=== PATIENT | male | born 1975 | race Caucasian/White ===

== ENCOUNTER → 2017-10-15 | Outpatient (CLI) | payer SELFPAY ==
[2017-10-15 10:33] VITALS: BMI 40.6
[2017-10-15 11:50] VITALS: BP 152/83; PULSE 80; TEMP 97.8
--- NOTE | 2017-10-15 12:08 | FL ---
GASTRIC BANDING ESOPHAGRAM CLINICAL HISTORY: Pain 6 images. 30 sec fl time. Gastric banding esophagram was performed. The patient ingested thin liquid barium without difficulty or delay. Gastric band is noted to be in place. There is no evidence for leak or obstruction. No prolapse is identified. IMPRESSION: Normal-appearing gastric banding device without leak or obstruction.
--- NOTE | 2017-10-15 16:51 | P.HPBAR ---
Bariatric H&P - History & Physicial H&P Date: 10/15/17 History & Physicial: Visit/CC: lap band follow up Patient initial contact: Initial weight: Initial weight in pounds: Height: 6 ft Initial BMI: Last weight: Current weight: 136.078 kg Current weight in pounds: 300.00 Current BMI: 40.6 [place] body weight (based on NIH guidelines): 80.739 kg Excess body weight loss: The patient is a 42 year-old M who presents for Bariatric Assessment. The patient presents today for lab band follow. He has not been seen for over 6 years. Patient has had some complaints of nausea and epigastric dull pain. He is requesting his fluid removed. Past Medical History Past Medical History: GERD/Reflux, Hypertension History of Any Multi-Drug Resistant Organisms: None Reported Past Surgical History: Bariatric Surgery Additional Past Surgical History / Comment(s): lap band 2009 Past Anesthesia/Blood Transfusion Reactions: No Reported Reaction Past Psychological History: No Psychological Hx Reported Smoking Status: Former smoker Past Alcohol Use History: None Reported Additional Past Alcohol Use History / Comment(s): quit smoking over 10 years ago Past Drug Use History: None Reported Surgical - Exam Vital Signs Temp Pulse BP 97.8 F 80 152/83 10/15/17 11:42 10/15/17 11:42 10/15/17 11:42 - General well developed, no distress - Eyes PERRL - ENT normal pinna - Neck no masses - Respiratory normal expansion - Cardiovascular Rhythm: regular - Abdomen Abdomen: soft, non tender Bariatric Assessment & Plan Plan: Patient LAP-BAND was adjusted. He had all of this fluid removed from the band. There was 3.5 mL in the band. Patient then went on to have an esophagram which showed no obstruction or prolapse. Patient will follow-up in 2 weeks. Bariatric Checklist Checklist: Plan: Checklist: EGD: 1. Hiatal hernia: 2. H. Pylori: HgbA1c: Vitamin D: Smoking: Former smoker Primary care physician referral: Psychiatry clearance: Cardiology clearance: Sleep study: Diet journal: VTE risk score: VTE risk level: Rehab needs at discharge:
== END | disposition home or self-care (01) ==
LOC: BARWHC3 09:29
PROVIDERS: ATTEND Surgery
DX: Z48.815 Encounter for surgical aftercare following surgery on the digestive system (principal); K21.9 Gastro-esophageal reflux disease without esophagitis; I10 Essential (primary) hypertension; R13.10 Dysphagia, unspecified; Z87.891 Personal history of nicotine dependence; Z98.84 Bariatric surgery status
CPT/HCPCS: 74220; 99203

== ENCOUNTER → 2018-06-15 | Outpatient (CLI) | payer OTHER ==
[2018-06-15 15:30] VITALS: BP 185/115; PULSE 71; TEMP 98.1; BMI 45.6
--- NOTE | 2018-06-15 16:15 | P.HPBAR ---
Bariatric H&P - History & Physicial H&P Date: 06/15/18 History & Physicial: Visit/CC: sleeve consult Patient initial contact: Initial weight: 152.543 kg Initial weight in pounds: 336.30 Height: 6 ft Initial BMI: 45.6 Last weight: Current weight: 152.543 kg Current weight in pounds: 336.30 Current BMI: 45.6 [place] body weight (based on NIH guidelines): 80.739 kg Excess body weight loss: 0.0% The patient is a 43 year-old M who presents for Bariatric Assessment. Patient wished to have his LAP-BAND removed. He's had issues with chronic GERD, dysphagia and epigastric abdominal pain. Past Medical History Past Medical History: GERD/Reflux, Hypertension History of Any Multi-Drug Resistant Organisms: None Reported Past Surgical History: Bariatric Surgery Additional Past Surgical History / Comment(s): lap band 2009 Past Anesthesia/Blood Transfusion Reactions: No Reported Reaction Smoking Status: Former smoker Surgical - Exam Vital Signs Temp Pulse BP 98.1 F 71 185/115 06/15/18 15:25 06/15/18 15:25 06/15/18 15:25 - General well developed, well nourished, no distress - Eyes PERRL - ENT normal pinna - Neck no masses - Respiratory normal expansion - Cardiovascular Rhythm: regular - Abdomen Abdomen: soft, non tender Bariatric Assessment & Plan Plan: Chronic epigastric dull pain, GERD. Patient will undergo removal of LAP-BAND system. Bariatric Checklist Checklist: Plan: Checklist: EGD: 1. Hiatal hernia: 2. H. Pylori: HgbA1c: Vitamin D: Smoking: Former smoker Primary care physician referral: Psychiatry clearance: Cardiology clearance: Sleep study: Diet journal: VTE risk score: VTE risk level: Rehab needs at discharge:
== END ==
LOC: BARWHC3 14:52
PROVIDERS: ATTEND Surgery
DX: Z48.815 Encounter for surgical aftercare following surgery on the digestive system (principal); K21.9 Gastro-esophageal reflux disease without esophagitis; R10.13 Epigastric pain; Z98.84 Bariatric surgery status; Z87.891 Personal history of nicotine dependence
CPT/HCPCS: 99211

== ENCOUNTER → 2018-06-15 | Outpatient (CLI) | payer OTHER ==
[2018-06-15 16:22] LABS: ALT 35 U/L (21-72); AST 29 U/L (17-59); Albumin 3.7 g/dL (3.5-5.0); Alkaline Phosphatase 71 U/L (38-126); Anion Gap 7 mmol/L; Blood Urea Nitrogen 15 mg/dL (9-20); Calcium 9.2 mg/dL (8.4-10.2); Carbon Dioxide 26 mmol/L (22-30); Chloride 106 mmol/L (98-107); Glucose 91 mg/dL (74-99); Potassium 3.6 mmol/L (3.5-5.1); Sodium 139 mmol/L (137-145); Total Bilirubin 0.4 mg/dL (0.2-1.3); Total Protein 7.2 g/dL (6.3-8.2)
[2018-06-15 16:37] LABS: Basophils % (A) 1 %; Eosinophils # (A) 0.2 k/uL (0-0.7); Eosinophils % (A) 3 %; HCT 36.2 % (39.0-53.0); HGB 11.3 gm/dL (13.0-17.5); Hypochromasia Moderate; Lymphocytes # (A) 2.2 k/uL (1.0-4.8); Lymphocytes % (A) 40 %; MCH 23.4 pg (25.0-35.0); MCHC 31.2 g/dL (31.0-37.0); Microcytosis Slight; Monocytes # (A) 0.4 k/uL (0-1.0); Monocytes % (A) 7 %; Neutrophils # (A) 2.6 k/uL (1.3-7.7); Neutrophils % (A) 46 %; Platelet Count 227 k/uL (150-450); RBC 4.83 m/uL (4.30-5.90); RDW 15.6 % (11.5-15.5); WBC 5.6 k/uL (3.8-10.6)
== END | disposition home or self-care (01) ==
LOC: LABPAT 15:24
PROVIDERS: ATTEND Surgery
DX: Z01.818 Encounter for other preprocedural examination (principal); Z01.812 Encounter for preprocedural laboratory examination
CPT/HCPCS: 36415; 80053; 85025; 93005

== ENCOUNTER 2018-09-25 06:06 | Day surgery (SDC) | payer OTHER ==
[2018-09-24 09:58] VITALS: BMI 44.7
[~2018-09-25 06:06] MED LIST: DEXAMETHASONE SOD PHOSPHATE 10 MG/ML 1 ML VIAL IV ONE; LACTATED RINGERS 1,000 ML IV SCH; MIDAZOLAM 2 MG/2 ML VIAL IV PRN; ONDANSETRON 4 MG/2 ML VIAL IVP ONE; SCOPOLAMINE 1.5MG/72HR PATCH TRANSDERM ONE; ceFAZolin 3 GM in SODIUM CHLORIDE 0.9% 100 ML IVPB ONE
[2018-09-25 07:10] LABS: Basophils % (A) 0 %; Eosinophils # (A) 0.2 k/uL (0-0.7); Eosinophils % (A) 3 %; HCT 37.7 % (39.0-53.0); HGB 11.6 gm/dL (13.0-17.5); Lymphocytes # (A) 1.9 k/uL (1.0-4.8); Lymphocytes % (A) 36 %; MCH 22.5 pg (25.0-35.0); MCHC 30.7 g/dL (31.0-37.0); MCV 73.3 fL (80.0-100.0); Mean Platelet Volume 6.2; Microcytosis Slight; Monocytes # (A) 0.4 k/uL (0-1.0); Monocytes % (A) 8 %; Neutrophils # (A) 2.6 k/uL (1.3-7.7); Neutrophils % (A) 51 %; Platelet Count 282 k/uL (150-450); RBC 5.14 m/uL (4.30-5.90); RDW 15.2 % (11.5-15.5); WBC 5.2 k/uL (3.8-10.6)
[2018-09-25 07:23] LABS: ALT 40 U/L (21-72); AST 28 U/L (17-59); Alkaline Phosphatase 58 U/L (38-126); Anion Gap 8 mmol/L; Blood Urea Nitrogen 10 mg/dL (9-20); Calcium 9.1 mg/dL (8.4-10.2); Carbon Dioxide 29 mmol/L (22-30); Chloride 104 mmol/L (98-107); Glucose 108 mg/dL (74-99); Potassium 4.2 mmol/L (3.5-5.1); Sodium 141 mmol/L (137-145); Total Bilirubin 0.6 mg/dL (0.2-1.3); Total Protein 7.6 g/dL (6.3-8.2)
[2018-09-25] MEDS ORDERED: HEPARIN SODIUM,PORCINE 5,000 UNIT/ML 1 ML VIAL SQ ONE (07:53)
[2018-09-25] MEDS ORDERED: SUCCINYLCHOLINE CHLORIDE VIAL 200 MG/10 ML VIAL IV ONE (07:56)
[2018-09-25] MEDS ORDERED: KETOROLAC 30 MG/ML 1 ML VIAL ONE (07:56)
[2018-09-25] MEDS ORDERED: ROCURONIUM BROMIDE 10 MG/ML 10 ML VIAL IV ONE (07:56)
[2018-09-25] MEDS ORDERED: GLYCOPYRROLATE 0.2 MG/ML 2 ML VIAL ONE (07:56)
[2018-09-25] MEDS ORDERED: PROPOFOL 10 MG/ML 20 ML VIAL IV ONE (07:56)
[2018-09-25] MEDS ORDERED: fentaNYL (PF) 50 MCG/ML 2 ML AMP ONE (07:56)
[2018-09-25] MEDS ORDERED: NEOSTIGMINE 1 MG/ML 10 ML VIAL ONE (07:56)
[2018-09-25] MEDS ORDERED: MIDAZOLAM 2 MG/2 ML VIAL ONE (07:56)
[2018-09-25] MEDS ORDERED: LIDOCAINE 1% INJ 10MG/ML (20 ML MDV) ONE (07:56)
--- NOTE | 2018-09-25 08:07 | P.GSHP ---
History of Present Illness H&P Date: 09/25/18 Chief Complaint: Dysphagia This is a 43-year-old male who presents today for removal of LAP-BAND system. Patient has had issues with dysphagia. His LAP-BAND has been emptied for several years. Past Medical History Past Medical History: GERD/Reflux, Hypertension History of Any Multi-Drug Resistant Organisms: None Reported Past Surgical History: Bariatric Surgery Additional Past Surgical History / Comment(s): Lap band 2009. Past Anesthesia/Blood Transfusion Reactions: No Reported Reaction Past Psychological History: No Psychological Hx Reported Smoking Status: Former smoker Past Alcohol Use History: None Reported Additional Past Alcohol Use History / Comment(s): Quit smoking over 10 years ago. Past Drug Use History: None Reported - Past Family History Mother Family Medical History: No Reported History Medications and Allergies Home Medications Medication Instructions Recorded Confirmed Type amLODIPine [Norvasc] 10 mg PO 1500 10/15/17 09/25/18 History Multivitamin [Men's Multi-Vitamin] 1 each PO DAILY 06/24/18 09/24/18 History [place]-3 Fatty Acids/Fish Oil [Fish 1 each PO DAILY 06/24/18 09/24/18 History Oil 1,000 mg Softgel] Allergies Allergy/AdvReac Type Severity Reaction Status Date / Time No Known Allergies Allergy Verified 09/25/18 06:40 Surgical - Exam Vital Signs Temp Pulse Resp BP Pulse Ox 97.0 F L 85 17 158/85 98 09/25/18 06:46 09/25/18 06:46 09/25/18 06:46 09/25/18 06:46 09/25/18 06:46 - General well developed, well nourished, no distress - Eyes PERRL - ENT normal pinna - Neck no masses - Respiratory normal expansion - Cardiovascular Rhythm: regular - Abdomen Abdomen: soft, non tender Results - Labs 09/25/18 06:57 09/25/18 06:57 Abnormal Lab Results - Last 24 Hours (Table) 09/25/18 09/25/18 Range/Units 06:57 06:57 Hgb 11.6 L (13.0-17.5) gm/dL Hct 37.7 L (39.0-53.0) % MCV 73.3 L (80.0-100.0) fL MCH 22.5 L (25.0-35.0) pg MCHC 30.7 L (31.0-37.0) g/dL Glucose 108 H (74-99) mg/dL Diabetes panel 09/25/18 Range/Units 06:57 Sodium 141 (137-145) mmol/L Potassium 4.2 (3.5-5.1) mmol/L Chloride 104 (98-107) mmol/L Carbon Dioxide 29 (22-30) mmol/L BUN 10 (9-20) mg/dL Creatinine 0.94 (0.66-1.25) mg/dL Glucose 108 H (74-99) mg/dL Calcium 9.1 (8.4-10.2) mg/dL AST 28 (17-59) U/L ALT 40 (21-72) U/L Alkaline Phosphatase 58 (38-126) U/L Total Protein 7.6 (6.3-8.2) g/dL Albumin 4.0 (3.5-5.0) g/dL Calcium panel 09/25/18 Range/Units 06:57 Calcium 9.1 (8.4-10.2) mg/dL Albumin 4.0 (3.5-5.0) g/dL Pituitary panel 09/25/18 Range/Units 06:57 Sodium 141 (137-145) mmol/L Potassium 4.2 (3.5-5.1) mmol/L Chloride 104 (98-107) mmol/L Carbon Dioxide 29 (22-30) mmol/L BUN 10 (9-20) mg/dL Creatinine 0.94 (0.66-1.25) mg/dL Glucose 108 H (74-99) mg/dL Calcium 9.1 (8.4-10.2) mg/dL Adrenal panel 09/25/18 Range/Units 06:57 Sodium 141 (137-145) mmol/L Potassium 4.2 (3.5-5.1) mmol/L Chloride 104 (98-107) mmol/L Carbon Dioxide 29 (22-30) mmol/L BUN 10 (9-20) mg/dL Creatinine 0.94 (0.66-1.25) mg/dL Glucose 108 H (74-99) mg/dL Calcium 9.1 (8.4-10.2) mg/dL Total Bilirubin 0.6 (0.2-1.3) mg/dL AST 28 (17-59) U/L ALT 40 (21-72) U/L Alkaline Phosphatase 58 (38-126) U/L Total Protein 7.6 (6.3-8.2) g/dL Albumin 4.0 (3.5-5.0) g/dL Assessment and Plan Assessment: Chronic dysphagia related to her LAP-BAND. Patient will undergo removal of LAP- BAND system today. Patient's aware the risks of surgery including injury to the stomach liver or spleen.
[2018-09-25] MEDS ORDERED: BUPIVACAIN-EPI 0.25%-1:200,000 30 ML VIAL SQ ONE ×2 (08:28)
[2018-09-25 09:51] VITALS: TEMP 97.2
--- NOTE | 2018-09-25 10:12 | P.OP ---
Date of Procedure: 09/25/18 Preoperative Diagnosis: Dysphagia Postoperative Diagnosis: Dysphagia Procedure(s) Performed: Laparoscopic removal of LAP-BAND system Anesthesia: RUBEN Surgeon: Dustin Zhou Estimated Blood Loss (ml): 25 Pathology: none sent Condition: stable Disposition: PACU Description of Procedure: The patient's placed on the operative table in the supine position. He received general anesthesia. He was then placed in dorsal lithotomy position. His abdomen was prepped and draped in usual sterile fashion. The skin incision sites were anesthetized with 1% local Xylocaine. Using 11 blade the skin was incised in the left upper quadrant. This was at the port site. Using blunt and sharp dissection with cautery the LAP-BAND port was dissected free and then the PEG tube was then cut. Using a 5 mm optical trocar under direct visualization the peritonealCavity is entered. The abdomen was insufflated after adequate insufflation the laparoscope was placed back into the the peritoneal cavity. Next a 5 mm trocar was placed in the right upper quadrant, right lateral, left lateral. tissue. And then a 8 mm trocar was placed in the left periumbilical area. The initial 5 mm trocar was exchanged for a 15 mm trocar. The left lateral lobe liver was retracted. The LAP-BAND device was visualized. The adhesions Eva device were lysed using sharp dissection. And then the area the buckle was dissected using electrocautery. Care was taken to identify and preserve the gastric wall. The anterior gastric wall plication was taken partly down using sharp dissection. The LAP-BAND device was then cut and withdrawn from around stomach. The LAP-BAND device was then removed via the 15 mm trocar site. The abdomen was irrigated there is no bleeding seen. At this point the stomach was insufflated with 700 mL of methylene blue normal saline. There is no evidence of any injury to the stomach or esophagus. There is no evidence of any extravasation of the methylene blue normal saline. The abdomen was then irrigated again. The trochars were withdrawn. The abdomen was desufflated the skin was closed with interrupted 3-0 Monocryl suture. Dermabond was applied. Patient top procedure well and was sent to recovery in stable condition.
[2018-09-25] MEDS: HYDROmorphone 0.5 MG/0.5 ML SYRINGE IVP PRN ×2 (10:17→10:25)
[2018-09-25 10:33] VITALS: RESP 18
[2018-09-25] MEDS ORDERED: ONDANSETRON ODT 4 MG TAB PO ONE (11:28)
[2018-09-25 11:41] VITALS: BP 137/78; PULSE 73
== END 2018-09-25 12:08 | disposition home or self-care (01) ==
LOC: OR 06:06
PROVIDERS: ATTEND Surgery
DX: R13.19 Other dysphagia (principal); I10 Essential (primary) hypertension; K21.9 Gastro-esophageal reflux disease without esophagitis; Z87.891 Personal history of nicotine dependence; Z98.84 Bariatric surgery status; Z79.899 Other long term (current) drug therapy
CPT/HCPCS: 80053; 85025; 43774; J2250; J0330; J1644; J1100; J2710; J0690; J2405; J2001; J3010; J1885; J2704; J1170

== ENCOUNTER → 2018-10-05 | Outpatient (CLI) | payer OTHER ==
[2018-10-05 14:57] VITALS: BP 129/90; PULSE 102; RESP 16; TEMP 98.9; BMI 44.6
--- NOTE | 2018-10-12 16:04 | P.HPBAR ---
Bariatric H&P - History & Physicial H&P Date: 10/05/18 History & Physicial: Visit/CC: band removal follow-up Patient initial contact: Initial weight: 149.685 kg Initial weight in pounds: 330.00 Height: 6 ft Initial BMI: 44.7 Last weight: Current weight: 149.232 kg Current weight in pounds: 329.00 Current BMI: 44.6 [place] body weight (based on NIH guidelines): 80.739 kg Excess body weight loss: 0.6% The patient is a 43 year-old M who presents for Bariatric Assessment. She is status post removal of LAP-BAND system. He denies any nausea or vomiting. He has no significant abdominal pain. Past Medical History Past Medical History: GERD/Reflux, Hypertension History of Any Multi-Drug Resistant Organisms: None Reported Past Surgical History: Bariatric Surgery Additional Past Surgical History / Comment(s): Lap band 2008.Lap BAND Removed 09/25/18 Past Anesthesia/Blood Transfusion Reactions: No Reported Reaction Past Psychological History: No Psychological Hx Reported Smoking Status: Former smoker Past Alcohol Use History: None Reported Additional Past Alcohol Use History / Comment(s): Quit smoking over 10 years ago. Past Drug Use History: None Reported - Past Family History Mother Family Medical History: No Reported History Surgical - Exam Vital Signs Temp Pulse Resp BP 98.9 F 102 H 16 129/90 10/05/18 14:54 10/05/18 14:54 10/05/18 14:54 10/05/18 14:54 - General well developed, well nourished, no distress - Eyes PERRL - ENT normal pinna - Neck no masses - Respiratory normal expansion - Cardiovascular Rhythm: regular - Abdomen Incision sites are clean dry and intact. Abdomen: soft, non tender Bariatric Assessment & Plan Plan: Status post removal LAP-BAND. Patient is doing quite well. He will follow-up as needed. Bariatric Checklist Checklist: Plan: Checklist: EGD: 1. Hiatal hernia: 2. H. Pylori: HgbA1c: Vitamin D: Smoking: Former smoker Primary care physician referral: Psychiatry clearance: Cardiology clearance: Sleep study: Diet journal: VTE risk score: VTE risk level: Rehab needs at discharge:
== END | disposition home or self-care (01) ==
LOC: BARWHC3 14:30
PROVIDERS: ATTEND Surgery
DX: Z48.815 Encounter for surgical aftercare following surgery on the digestive system (principal); Z87.891 Personal history of nicotine dependence; Z98.84 Bariatric surgery status
CPT/HCPCS: 99211

== ENCOUNTER → 2019-07-05 | Outpatient (CLI) | payer OTHER | END | disposition home or self-care (01) | LOC: LABPAT 12:36 | PROVIDERS: ATTEND Family Medicine | DX: Z01.812 Encounter for preprocedural laboratory examination (principal); M16.12 Unilateral primary osteoarthritis, left hip | CPT/HCPCS: 87070 ==

== ENCOUNTER → 2020-02-11 | Outpatient (CLI) | payer OTHER ==
[2020-02-11 14:48] LABS: Anisocytosis Slight; Basophils # (A) 0.1 k/uL (0-0.2); Basophils % (A) 1 %; Eosinophils # (A) 0.3 k/uL (0-0.7); Eosinophils % (A) 5 %; HGB 12.3 gm/dL (13.0-17.5); Hypochromasia Slight; Lymphocytes # (A) 1.9 k/uL (1.0-4.8); Lymphocytes % (A) 35 %; MCH 22.5 pg (25.0-35.0); MCHC 30.8 g/dL (31.0-37.0); Mean Platelet Volume 6.5; Microcytosis Moderate; Monocytes # (A) 0.3 k/uL (0-1.0); Monocytes % (A) 6 %; Neutrophils # (A) 2.8 k/uL (1.3-7.7); Neutrophils % (A) 51 %; Platelet Count 295 k/uL (150-450); RBC 5.48 m/uL (4.30-5.90); RDW 16.1 % (11.5-15.5); WBC 5.5 k/uL (3.8-10.6)
[2020-02-11 14:57] LABS: INR 0.9 (<1.2); Prothrombin Time 9.7 sec (9.0-12.0)
[2020-02-11 19:29] LABS: Anion Gap 8.1 mmol/L (4.00-12.00); Carbon Dioxide 30.9 mmol/L (21.6-31.8); Potassium 3.8 mmol/L (3.5-5.5)
== END | disposition home or self-care (01) ==
LOC: LABWHC1 13:44
PROVIDERS: ATTEND Orthopaedic Surgery
DX: Z01.812 Encounter for preprocedural laboratory examination (principal)
CPT/HCPCS: 36415; 80051; 85025; 85610; 87070

== ENCOUNTER 2020-03-01 11:53 | Inpatient (IN) | payer OTHER ==
--- NOTE | 2020-02-28 14:48 | HP ---
HISTORY AND PHYSICAL CHIEF COMPLAINT: Left hip pain. 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 It has worsened recently. He has pain with any weightbearing activities. He also notes night symptoms. He has been using a cane. He has tried previous medications without much relief. PAST MEDICAL HISTORY: Significant for hypertension and morbid obesity. PAST SURGICAL HISTORY: Significant for previous lap banding with subsequent removal. CURRENT MEDICATIONS: Amlodipine. He denies drug allergies. FAMILY HISTORY: Negative. SOCIAL HISTORY: Negative for current tobacco or alcohol use. 16 POINT REVIEW OF SYSTEMS: Otherwise reviewed and is noncontributory. PHYSICAL EXAMINATION: On examination, the patient is approximately 6 feet tall, 330 pounds of endomorphic habitus. HEENT exam is nonfocal. Neck is supple. Passive motion left hip, flexion 80 degrees, external rotation of the hip flex 55 degrees, internal rotation is 10 degrees with pain. His distal neurovascular exam appears intact in the left lower extremity. X-rays of the left hip obtained in the office show avascular necrosis involving the lateral femoral head with some collapse. IMPRESSION: 1. Left hip avascular necrosis-stage III. 2. Morbid obesity. RECOMMENDATIONS: I talked to the patient at length regarding his condition along with treatment options. At this point, he is quite symptomatic and opts to proceed with surgery. We will plan to proceed with left total hip arthroplasty utilizing a lateral approach. Risks and benefits were discussed at length in layman's terms. We will institute DVT prophylaxis postoperatively. The patient underwent preoperative cardiac evaluation by Dr. Mensah. OC / MARY: [id number] /
[~2020-03-01 11:53] MED LIST changes: +ACETAMINOPHEN TAB 500 MG TAB PO ONE; -LACTATED RINGERS 1,000 ML IV SCH; +LIDOCAINE 1% (10MG/ML) FOR IV START INTRADERMA PRN; +MELOXICAM 7.5 MG TAB PO ONE; -SCOPOLAMINE 1.5MG/72HR PATCH TRANSDERM ONE; +TRANEXAMIC ACID 1,000 MG in SODIUM CHLORIDE 0.9% 100 ML IVPB ONE; +fentaNYL (PF) 50 MCG/ML 2 ML AMP IVP PRN
[2020-03-01] MEDS ORDERED: ACETAMINOPHEN TAB 500 MG TAB ONE (12:09)
[2020-03-01] MEDS ORDERED: ONDANSETRON 4 MG/2 ML VIAL ONE (12:10)
[2020-03-01] MEDS: LACTATED RINGERS 1,000 ML IV SCH (12:29)
[2020-03-01] MEDS ORDERED: LIDOCAINE 1% INJ 10MG/ML (20 ML MDV) ONE (12:49)
[2020-03-01] MEDS ORDERED: KETAMINE 10 MG/ML 20 ML VIAL ONE (12:49)
[2020-03-01] MEDS ORDERED: fentaNYL (PF) 50 MCG/ML 2 ML AMP ONE (12:49)
[2020-03-01] MEDS ORDERED: MIDAZOLAM 2 MG/2 ML VIAL ONE (12:49)
[2020-03-01] MEDS ORDERED: PROPOFOL 10 MG/ML 20 ML VIAL IV ONE (12:49)
[2020-03-01] MEDS ORDERED: HYDROmorphone (PF) 1 MG/ML ONE (12:49)
[2020-03-01] MEDS ORDERED: HYDROmorphone 1 MG/ML 1 ML SYRINGE IVP PRN (15:11)
[2020-03-01] MEDS ORDERED: ACETAMINOPHEN TAB 325 MG TAB PO PRN (15:11)
[2020-03-01] MEDS ORDERED: ONDANSETRON 4 MG/2 ML VIAL IVP PRN (15:11)
[2020-03-01] MEDS ORDERED: HYDROcodone/APAP 7.5-325MG 1 EACH TAB PO PRN (15:11)
[2020-03-01] MEDS ORDERED: NALOXONE 0.4 MG/ML 1 ML VIAL IV PRN (15:11)
[2020-03-01] MEDS ORDERED: MAGNESIUM HYDROXIDE 2,400 MG/10 ML CUP PO PRN (15:11)
[2020-03-01] MEDS ORDERED: HYDROmorphone 0.5 MG/0.5 ML SYRINGE IVP PRN (15:11)
[2020-03-01] MEDS ORDERED: traMADol 50 MG TAB PO PRN (15:11)
[2020-03-01] MEDS ORDERED: ceFAZolin 3,000 MG in SODIUM CHLORIDE 0.9% IRRIGATIO 3,000 ML IRRIGATION ONE (15:22)
[2020-03-01] MEDS: HYDROmorphone 0.5 MG/0.5 ML SYRINGE IVP PRN ×5 (15:36→21:47)
--- NOTE | 2020-03-01 15:37 | P.OP ---
Date of Procedure: 03/01/20 Preoperative Diagnosis: Stage III left hip avascular necrosis Postoperative Diagnosis: Same Procedure(s) Performed: Left total hip arthroplastypress-fitlateral approach Implants: Depuy [place] size 11 high offset press-fit femoral stem, 36+1.5 cobalt chrome femoral head, 54 mm [place] acetabular shell with neutral polyethylene liner. Anesthesia: spinal Surgeon: Tom Rome Breast Puller #1: Duke Iyer Estimated Blood Loss (ml): 200 Pathology: other (Femoral head) Condition: stable Disposition: PACU Indications for Procedure: The patient's a 45-year-old male presents with progressive left hip pain secondary to avascular necrosis of the femoral head and subsequent collapse. A discussion the risks and benefits of operative intervention was made with patient. He opted to surgery. Operative risks to include infection, neurovascular injury, fracture, leg length a prescription to, possible instability and need for subsequent procedures was discussed. Informed consent was obtained. Operative Findings: As below Description of Procedure: The patient was brought to the operating room, and after induction of spinal anesthesia was placed in a lateral decubitus position. The bony prominences were appropriately padded. The pelvis was stable perpendicular to the floor with a pegboard. The left lower extremity was prepped and draped in normal fashion. A 12 cm incision was then made centered over the greater trochanter extending superiorly to level the ASIS and distally in line with the femoral shaft. The skin and subcutaneous tissues were divided sharply. Electrocautery was used for hemostasis. The fascia marina and gluteus gavin fascia was split in line with the skin incision. The muscle fibers were bluntly dissected proximally. A self-retaining retractor was placed. The anterior and posterior margins of the gluteus medius muscles identified and the anterior two thirds was detached from the greater trochanter with electrocautery. The gluteus minimus tendon was identified and detached in a similar fashion. A wide capsulotomy was performed. The femoral neck fracture was identified in the lower neck cut was made approximately 1 1/2 cm above the level of the lesser trochanter with a sagittal saw at a 45 the shaft. The head was then extracted with a corkscrew. Attention was then paid towards preparing the acetabular. Anterior and posterior retractors were placed. The remaining capsular labral tissues debrided sharply clearly defining the acetabular margins. Began reaming with a 47 mm reamer taking care to initially medialize, then reaming at 45 of abduction and 20 of anteversion. Sequential reaming is performed up to 53 mm. This was down to bleeding bony surface. A trial for mm acetabular shell was inserted at 45 of abduction and 20 of anteversion. This was fully seated. There was good rim fit and stability. A posterior superior screw was placed utilizing a 6.5 x 25 mm cancellus screw. Good purchase was obtained. A neutral polyethylene liner was then impacted. Care taken to avoid any soft tissue interposition. Attention was then paid towards preparing the proximal femur. A box chisel was used to open the metaphyseal region. A canal finder was used to find the femoral canal. Sequential broaching was performed up to a size 11. This is placed in 15 of anteversion with the leg perpendicular floor judging off the trans-epicondylar axis. There is good rotational stability. A calcar mill was used to fashion the medial calcar. A trial high offset neck along with a 36 mm + 1.5 trial head was placed. The hip was gently reduced. It was taken through range of motion. I felt to be stable in flexion and extension with internal and external rotation. I felt there was adequate jainism of soft tissue tension. The hip was gently dislocated. The trial components removed. Pulsatile lavage was utilized. The final size 11 high offset collared femoral stem was inserted again with the leg perpendicular to the floor in 15 of anteversion. Again there was good rotational stability. A 36 mm + 1.5 cobalt chrome femoral head was gently impacted. The hip was gently reduced. Again it was taken through motion and felt to be stable in flexion and extension with internal and external rotation. Pulsatile lavage was again utilized. With the leg in abduction the gluteus minimus and medius tendons reattached to the greater trochanter with #2 Ethibond suture. There was minimal drainage therefore a deep drain was not placed. The fascia marina and gluteus gavin fascia was closed with #2 Ethibond suture. The subcutaneous tissues were reapproximated interrupted 2-0 Vicryl sutures. The skin was reapproximated with 3-0 subcuticular strata fix suture. Skin tape and adhesive was applied. A sterile dressing was applied. The patient was awoken from sedation and transferred to recovery room in good condition. Blood loss was estimated 200 mL. No complications were incurred. Sponge and needle counts were correct in the case. Teodoro JONES assisted during the major composes case to include exposure, implantation, and closure.
--- NOTE | 2020-03-01 16:05 | XR ---
Left hip Limited HISTORY: Status post left hip arthroplasty Single frontal view of the left hip Patient is status post left hip arthroplasty. There is anatomic alignment. Lucency is present in the soft tissues. Technique is limited. IMPRESSION: Orthopedic follow-up.
[2020-03-01] MEDS: HYDROcodone/APAP 7.5-325MG 1 EACH TAB PO PRN (18:06)
[2020-03-01] MEDS ORDERED: SENNOSIDES-DOCUSATE SODIUM 1 EACH TAB PO SCH (21:00)
[2020-03-01] MEDS: ceFAZolin 3 GM in SODIUM CHLORIDE 0.9% 100 ML IVPB SCH (21:35)
[2020-03-01] MEDS ORDERED: amLODIPine 10 MG TAB PO SCH (22:07)
--- NOTE | 2020-03-01 23:37 | P.CONS ---
History of Present Illness - Reason for Consult Consult date: 03/01/20 medical management post op Requesting physician: Tom Rome - Chief Complaint left hip pain - History of Present Illness 45 year old male with obesity and hypertension patient comes in scheduled for left hip replacement due to severe degenerative disease not responding to conservative management. patient had his surgery today , tolerated procedure well, denies any post op chest pain or trouble breathing, denies any nausea or vomiting , he tolerated PO intake. no problems urinating patient blood pressure was elevated post op, he reports that he did not take his blood pressure meds today Review of Systems Pertinent positives as noted in HPI. All other systems were reviewed and are negative Past Medical History Past Medical History: GERD/Reflux, Hypertension, Osteoarthritis (OA) History of Any Multi-Drug Resistant Organisms: None Reported Past Surgical History: Bariatric Surgery Additional Past Surgical History / Comment(s): Lap band 2008.Lap BAND Removed 09/25/18 Past Anesthesia/Blood Transfusion Reactions: No Reported Reaction Past Psychological History: No Psychological Hx Reported Smoking Status: Former smoker Past Alcohol Use History: None Reported Additional Past Alcohol Use History / Comment(s): Quit smoking over 10 years ago. Past Drug Use History: None Reported - Past Family History Mother Family Medical History: No Reported History Medications and Allergies Home Medications Medication Instructions Recorded Confirmed Type amLODIPine [Norvasc] 10 mg PO 1200 10/15/17 03/01/20 History Allergies Allergy/AdvReac Type Severity Reaction Status Date / Time No Known Allergies Allergy Verified 03/01/20 12:11 Physical Exam Vitals: Vital Signs Temp Pulse Resp BP Pulse Ox 03/01/20 19:23 89 18 163/103 100 03/01/20 19:08 92 18 157/112 100 03/01/20 18:53 83 18 133/95 99 03/01/20 18:38 79 18 148/93 94 L 03/01/20 18:24 70 18 134/81 99 03/01/20 18:08 80 18 150/87 97 03/01/20 17:38 78 18 142/93 89 L 03/01/20 17:23 60 18 163/89 92 L 03/01/20 17:21 97.8 F 79 18 138/85 99 03/01/20 17:08 73 18 138/85 98 03/01/20 16:46 69 20 146/60 99 03/01/20 16:43 98.0 F 82 18 118/80 97 03/01/20 16:31 82 20 152/72 99 03/01/20 16:15 62 20 156/74 99 03/01/20 16:00 70 20 149/75 98 03/01/20 15:45 73 20 129/60 98 03/01/20 15:32 96.8 F L 93 20 169/79 98 03/01/20 12:21 97.9 F 94 18 162/90 97 Intake and Output 03/01/20 03/01/20 03/02/20 14:59 22:59 06:59 Intake Total 1000 351 Output Total 200 Balance 800 351 Intake: IV 1000 351 Output: Estimated Blood Loss 200 Other: Weight 151.5 kg 151.5 kg Constitutional: No acute distress, conversant, pleasant Eyes: Anicteric sclerae, moist conjunctiva, Pupils equal round reactive to light ENMT: NC/AT Oropharynx clear, no erythema, or exudates Neck: Supple, FROM, no masses, or JVD No carotid bruits No thyromegaly Lungs: Clear to auscultation Clear to percussion Normal respiratory effort, no accessory muscle use Cardiovascular: Heart regular in rate and rhythm, No murmurs, gallops, or rubs No peripheral edema Abdominal: Soft Nontender, no guarding, rebound or rigidity Abdomen moving with respiration Normoactive bowel sounds No hepatomegaly, No splenomegaly No palpable mass No abdominal wall hernia noted Skin: Normal temperature, tone, texture, turgor No induration No subcutaneous nodules No rash, lesions No ulcers Extremities: No digital cyanosis No clubbing Pedal pulses intact and symmetrical Radial pulses intact and symmetrical No calf tenderness Psychiatric: Alert and oriented to person, place and time Appropriate affect fair judgement Neuro Muscles Strength 5/5 in bilateral upper extremities, and right lower extremity , limited exam over left LE, due to recent surgery Sensation to light touch grossly present throughout Cranial nerves II-XII grossly intact No focal sensory deficits Lymphatics: no palpable cervical or supraclavicular , or inguinal lymph nodes Assessment and Plan Assessment: left hip degenerative disease, post total left hip arthroplasty, POD zero pain control per ortho DVT PPX on xarelto hypertension , uncontrolled post op resume norvasc close monitoring of BP, clonidine prn for systolic >180 obesity patient working on monitoring his diet to help lose weight follow up bmp.,and CBC Thank you for allowing us to participate in the care of this patient. Do not hesitate to contact us with questions. Someone can be reached from the [facility] hospitalist group at all hours of the day at [phone].
[2020-03-02] MEDS ORDERED: cloNIDine HCL 0.2 MG TAB PO PRN (00:01)
[2020-03-02] MEDS: ceFAZolin 3 GM in SODIUM CHLORIDE 0.9% 100 ML IVPB SCH (03:57)
[2020-03-02] MEDS: LACTATED RINGERS 1,000 ML IV SCH (06:18)
[2020-03-02 07:30] VITALS: BP 152/75; PULSE 78; RESP 17; TEMP 98.4
[2020-03-02] MEDS: HYDROcodone/APAP 7.5-325MG 1 EACH TAB PO PRN (07:49)
[2020-03-02] MEDS ORDERED: RIVAROXABAN 10 MG TAB PO SCH (09:00)
[2020-03-02] MEDS ORDERED: FAMOTIDINE 20 MG TAB PO SCH (09:00)
--- NOTE | 2020-03-02 11:01 | P.PN ---
Subjective Progress Note Date: 03/02/20 Principal diagnosis: status post left total hip arthroplasty Patient evaluated at bedside today, his resting comfortably. He is under well with therapy. His pain is controlled. Denies any chest pain or shortness of breath Objective - Vital Signs Vital signs: Vital Signs Temp 98.4 F 03/02/20 07:00 Pulse 78 03/02/20 08:00 Resp 17 03/02/20 08:00 BP 152/75 03/02/20 07:00 Pulse Ox 98 03/02/20 07:00 Intake & Output 03/01/20 03/02/20 03/02/20 18:59 06:59 18:59 Intake Total 1351 Output Total 200 700 Balance 1151 -700 Weight 151.5 kg Intake: IV 1351 Output: Urine 700 Estimated Blood Loss 200 Other: Voiding Method Urinal Urinal - Exam Left lower extremity: Incision is clean, dry, and intact. The exofin fusion tape is in good condition. There is minimal soft tissue swelling and ecchymosis surrounding the medial and lateral aspects of the incision. Calf is soft, no tenderness with palpation. Plantar flexion, dorsiflexion, EHL, FHL are intact. Sensory exam to light touch throughout the extremity is intact, dorsal pedis pulses 2+. Assessment and Plan Assessment: status post left total hip arthroplasty Plan: Pain control, plan for discharge home on oral medication GI and DVT prophylaxis, Eliquis 2.5mg bid for 28 days Wound care and icing and elevating techniques discussed Home physical therapy and nursing after discharge Medical recommendations Plan for discharge home today Time with Patient: Less than 30
--- NOTE | 2020-03-02 11:04 | P.DS ---
Providers Date of admission: 03/01/20 11:53 Expected date of discharge: 03/02/20 Attending physician: Tom Rome Primary care physician: Stated None Hospital Course: Date of admission: 03/01/2020 Date of discharge: 03/02/2020 Admission diagnosis: status post left total hip arthroplasty Discharge diagnosis: same Attending physician: Dr. Rome Surgical procedures: left total hip arthroplasty Brief history: Patient is a a 45-year-old male with a history of progressive primary left hip osteoarthritis. At this point patient has failed conservative treatment measures and has opted to proceed with a elective left total hip arthroplasty. Hospital course: Details of patient's surgery can be found in operative report. Patient tolerated the procedure well and was subsequently transported to orthopedic floor. Patient's orthopeidc and medical care was provided daily. Patient had daily laboratory tests performed for evaluation of overall blood counts. Patient had daily physical therapy to include strengthening range of motion as well as education with walker ambulation. Patient was treated with Xarelto for their postoperative DVT prophylaxis during their inpatient stay. Patient was noted to have a relatively uneventful postoperative course. Patient reported satisfactory pain control with oral pain medications by postoperative day 0. Patient showed satisfactory progress with physical therapy. Patient moved steadily through the program and had no difficulty meeting the goals by postoperative day 1. Given patient's otherwise satisfactory course and having met physical therapy goals, plan is to discharge patient home on postoperative day 1. Discharge condition/disposition: Patient will be discharged home in stable condition. Discharge medications: Instructions are given on resumption of patient's normal daily medications per primary care recommendation, in addition patient will be prescribed [place] 7.5 mg/325 mg, tramadol 50 mg, Colace 100 mg, Eliquis 2.5mg. Discharge instructions: 1. Wound care and infection precautions, keep incision dry and covered while showering, no lotions, creams, moisturizers. No soaking, tubs, pools, hottubs. Do not scrub over the incision. 2. Weight-bear as tolerated with walker / cane until follow-up. 3. Ice and elevate when necessary. Do not exceed 20 minutes per hour with ice pack. 4. Utilize compression sleeve until seen at first follow up appointment. 5. Visiting nursing care. 6. Home physical therapy 7. Pain meds and anticoagulants per prescription. 8. Pain medication has potential to cause constipation. Increase oral fluid and fiber intake. Contact primary care provider if you have not had a bowel movement within 48 hours after discharge 9. No anti-inflammatory medication until discussed at first post operative visit, this including Motrin, Aleve, Mobic, Diclofenac 10. Follow up in office at 2 weeks postop with Teodoro Iyer PA-C 11. Follow up with your primary care doctor 7-10 days after discharge. 12. Contact [facility] with any questions, . Procedures: Left total hip arthroplasty Patient Condition at Discharge: Good Plan - Discharge Summary Discharge Rx Participant: Yes New Discharge Prescriptions: New Docusate [Colace] 100 mg PO DAILY #30 capsule Apixaban [Eliquis] 2.5 mg PO BID #60 tab HYDROcodone/APAP 7.5-325MG [[place] 7.5] 1 - 2 each PO Q6HR PRN #56 tab PRN Reason: Pain traMADol HCl [Ultram] 50 mg PO Q6H PRN #28 tab PRN Reason: Pain No Action amLODIPine [Norvasc] 10 mg PO 1200 Discharge Medication List amLODIPine [Norvasc] 10 mg PO 1200 10/15/17 [History] Apixaban [Eliquis] 2.5 mg PO BID #60 tab 03/02/20 [Rx] Docusate [Colace] 100 mg PO DAILY #30 capsule 03/02/20 [Rx] HYDROcodone/APAP 7.5-325MG [[place] 7.5] 1 - 2 each PO Q6HR PRN #56 tab 03/02/20 [Rx] traMADol HCl [Ultram] 50 mg PO Q6H PRN #28 tab 03/02/20 [Rx] Follow up Appointment(s)/Referral(s): [facility] [NON-STAFF] - (Please call [facility] if you have questions about your rollator. ) [facility], [NON-STAFF] - Duke Iyer PAC [PHYSICIAN FIELD MARKETING SPECIALIST] - 2 Weeks Activity/Diet/Wound Care/Special Instructions: Orthopedic Discharge Instructions: 1. Wound care and infection precautions, keep incision dry and covered while showering, no lotions, creams, moisturizers. No soaking, pools, hot tubs. Do not scrub over incision. 2. Weight-bear as tolerated with walker / cane until follow-up. 3. Ice and elevate when necessary. Do not exceed 20 minutes per hour with ice pack. 4. Utilize compression sleeve until seen at first follow up appointment. 5. Pain meds and anticoagulants per prescription. 6. Pain medication has potential to cause constipation. Increase oral fluid and fiber intake. Contact primary care provider if you have not had a bowel movement within 48 hours after discharge. 7. No anti-inflammatory medication until discussed at first post operative visit, this including Motrin, Aleve, Mobic, Diclofenac. 8. Follow up in office at 2 weeks postop with Teodoro yIer PA-C 9. Follow up with your primary care doctor 7-10 days after discharge. 10. Contact [facility] with any questions, . Discharge Disposition: HOME WITH HOME HEALTH SERVICES
[2020-03-02 12:37] VITALS: BMI 45.3
--- NOTE | 2020-03-02 13:13 | P.PN ---
Subjective Progress Note Date: 03/02/20 Patient was seen and examined. No acute events overnight. Blood pressure better controlled this morning now 152/75. Patient reports moderate pain in his left hip, 6-7 out of 10 in severity. He has been able to work with physical therapy. Comfortable going home. He denies any chest pain, shortness of breath or palpitations. No nausea or vomiting. No fever or chills. Objective - Vital Signs Vital signs: Vital Signs Temp 98.4 F 03/02/20 07:00 Pulse 78 03/02/20 08:00 Resp 17 03/02/20 08:00 BP 152/75 03/02/20 07:00 Pulse Ox 98 03/02/20 07:00 Intake & Output 03/01/20 03/02/20 03/02/20 18:59 06:59 18:59 Intake Total 1351 Output Total 200 700 Balance 1151 -700 Weight 151.5 kg 151.5 kg Intake: IV 1351 Output: Urine 700 Estimated Blood Loss 200 Other: Voiding Method Urinal Urinal - Exam General: [non toxic], [no distress], [appears at stated age], morbidly obese Derm: [warm], [dry] Head: [atraumatic], [normocephalic], [symmetric] Eyes: [EOMI], [no lid lag], [anicteric sclera] Mouth: [no lip lesion], [mucus membranes moist] Cardiovascular: [S1S2 reg], [no murmur], [positive DP pulse bilateral], Lungs: [CTA bilateral], [no rhonchi, no rales] , [no accessory muscle use] Abdominal: [soft], [ nontender to palpation], [no guarding], [no appreciable organomegaly] Ext: [no gross muscle atrophy], [no edema], [no contractures], left hip dressing clean dry and intact Neuro: [no focal neuro deficits] Psych: [Alert], [oriented], [appropriate affect] Assessment and Plan Assessment: Hypertension with hypertensive urgency resolved Left hip osteoarthritis post left total hip arthroplasty POD 1 Patient's blood pressure has improved since yesterday. His increased blood pressure is likely related to pain which should improve with better pain control. Patient advised to continue amlodipine. Patient advised low-salt diet. Patient advised weight loss and dietary modifications. He is advised to recheck his blood pressure at home. Patient advised to follow-up with his PCP within 3 days of discharge. Orthopedic surgery has cleared the patient for discharge and he will receive PT at home. Thank you for this consult. Please call with any additional questions or concerns.
== END 2020-03-02 13:35 | disposition home health service (06) | DRG 470 ==
LOC: 2ORMAIN 11:53 → 4SSUR 16:29
PROVIDERS: ADMIT Orthopaedic Surgery; ATTEND Orthopaedic Surgery
PROC: 0SRB02A Replacement of Left Hip Joint with Metal on Polyethylene Synthetic Substitute, Uncemented, Open Approach (ICD-10-PCS; principal; 2020-03-01 13:00)
DX: M87.88 Other osteonecrosis, other site (principal); Z68.42 Body mass index [BMI] 45.0-49.9, adult; E66.01 Morbid (severe) obesity due to excess calories; I10 Essential (primary) hypertension; K21.9 Gastro-esophageal reflux disease without esophagitis; I16.0 Hypertensive urgency; M16.12 Unilateral primary osteoarthritis, left hip; Z87.891 Personal history of nicotine dependence; Z98.84 Bariatric surgery status
CPT/HCPCS: 73501; 86850; 86900; 86901; 88300